=== PATIENT | female | born 1955 | race Caucasian/White ===

== ENCOUNTER 2017-04-15 07:17 | Day surgery (SDC) | payer MEDICARE, BC ==
[2017-04-15] MEDS ORDERED: LIDOCAINE 2% MDV (20MG/ML) 20ML VIAL IV ONE (07:18)
[2017-04-15] MEDS ORDERED: PROPOFOL 10 MG/ML VIAL IV ONE (07:18)
--- NOTE | 2017-04-18 09:01 | Operative Note ---
DATE OF SURGERY: 04/15/2017 SURGEON: Perez Díaz MD OPERATION: COLONOSCOPY. INDICATIONS: This is a 61-year-old female with average risk for colorectal cancer who presented for screening colonoscopy. POSTOPERATIVE DIAGNOSES: 1. A 3 mm sessile rectal polyp that was removed by cold biopsy forceps. 2. Otherwise normal colon. ANESTHESIA: Sedation is per Anesthesia. Pulse oximetry was monitored throughout the procedure to maintain O2 saturation of 90% or greater. Supplemental oxygen was administered via nasal cannula. Cardiac and vital signs were monitored throughout the duration of the procedure, and they were stable. The procedure of colonoscopy and risks and alternatives of the procedure, including the risk of bleeding and perforation, among others, were explained to the patient who voiced understanding and agreed to have the procedure done. Physical examination was performed, and the patient was found stable for sedation. PROCEDURE: The patient was placed in the left lateral position. Sedation was initiated. A digital rectal exam was performed and showed some mild external hemorrhoids with no palpable rectal masses. An Olympus PCF-180AL colonoscope was then inserted into the rectum under direct visualization. It was advanced to the cecum without difficulty. The ileocecal valve and appendiceal orifice were identified and photographed. The colonic mucosa was carefully examined upon introduction of the colonoscope. There was a 3 mm sessile polyp in the cecum that was removed by cold biopsy forceps. There were no other lesions noted. The colonoscope was then withdrawn while carefully examining the colonic mucosal surfaces. No other lesions were noted. In the rectum, retroflexion was performed and grade 1 internal hemorrhoids were noted. A 3 mm sessile polyp was noted and was removed by cold biopsy forceps. There were no other lesions noted. The colonoscope was then withdrawn and the procedure was terminated. The patient tolerated the procedure well without any immediate complications. She remained with stable vital signs and was transferred to the recovery room. RECOMMENDATIONS: 1. The patient should be on a high-fiber diet. 2. The patient is to have a repeat colonoscopy for surveillance in 3 or 5 years depending on the histology of the polyps. Thank you for allowing me to participate in the care of your patient. CC: Dr. Lisa ESPINOSA
== END 2017-04-15 09:30 | disposition home or self-care (01) ==
LOC: HOP 07:17
PROVIDERS: ATTEND Internal Medicine Gastroenterology
DX: Z12.11 Encounter for screening for malignant neoplasm of colon (principal); K62.1 Rectal polyp; D12.0 Benign neoplasm of cecum; E78.00 Pure hypercholesterolemia, unspecified; I10 Essential (primary) hypertension; M19.90 Unspecified osteoarthritis, unspecified site; G62.9 Polyneuropathy, unspecified; J45.909 Unspecified asthma, uncomplicated

== ENCOUNTER 2017-07-23 11:23 | Emergency (ER) | payer MEDICARE, BC ==
[2017-07-23] MEDS ORDERED: DOXYCYCLINE HYCLATE 100 MG CAPSULE PO ONE (11:29)
[2017-07-23] MEDS ORDERED: Diph,Pert(Acell),Tet Vac 0.5 ML SYR IM ONE (11:29)
--- NOTE | 2017-07-23 11:35 | Emergency Department Record ---
History of Present Illness - General Chief complaint: Extremity Problem Stated complaint: POSSIBLE R LEG INFECTION Time Seen by Provider: 07/23/17 11:29 Source: Patient Mode of Arrival: Ambulatory Limitations: No limitations - History of Present Illness Initial comments: 61 yo female presents with warmth and redness of the distal right leg. She is caring for her cat with a pelvic fracture. The cat rolled over onto her her on Tuesday and accidentally scratched her right lower leg. In the last day she has developed some distal redness, tenderness and warmth. No fevers. No pus. No NVD. No CP or shortness of breath. She is unsure of her last tetanus shot. Numerous drug allergies. MD Complaint: Extremity pain -: Days(s) (1) Location: Right, Lower Leg History of Same: No -: Yes Myalgia Radiation: Distal Quality: Aching Consistency: Constant Improves with: Nothing Worsens with: Palpation Associated Symptoms: Denies other symptoms - Related Data Previous Rx's Medication Instructions Recorded Doxycycline Monohydrate 100 mg PO BID #14 capsule 07/23/17 Allergies Allergy/AdvReac Type Severity Reaction Status Date / Time codeine Allergy Severe ANAPHYLAXIS Unverified 12/23/15 11:41 erythromycin lactobionate Allergy Intermediate NAUSEA Unverified 12/23/15 11:41 [From Erythrocin] morphine Allergy Intermediate RASH Unverified 12/23/15 11:41 penicillin Allergy Intermediate RASH Unverified 12/23/15 11:41 Sulfa (Sulfonamide Allergy Intermediate DERMATITS Unverified 12/23/15 11:41 Antibiotics) Review of Systems Constitutional: Denies: Chills, Fever Eyes: Denies: Eye discharge ENT: Denies: Congestion, Throat pain Respiratory: Denies: Cough Cardiovascular: Denies: Chest pain, Syncope Endocrine: Denies: Fatigue Gastrointestinal: Denies: Abdominal pain, Diarrhea, Nausea, Vomiting Genitourinary: Denies: Dysuria Musculoskeletal: Denies: Arthralgia, Back pain, Myalgia Skin: Denies: Bruising, Change in color, Rash Neurological: Denies: Headache Psychiatric: Denies: Anxiety Hematological/Lymphatic: Denies: Easy bleeding, Easy bruising Past Medical History - SOCIAL HISTORY Smoking Status: Former smoker - RESPIRATORY Hx Respiratory Disorders: Yes Hx Asthma: Yes Hx Bronchitis: Yes - CARDIOVASCULAR Hx Cardio Disorders: Yes Hx Chest Pain: Yes (angina but does not take anything) Hx Hypertension: Yes (controlled with meds) Hx Irregular Heartbeat: Yes (occ skip beat) Hx Vascular Disease: Yes Comment:: sl leak in valve - NEURO Hx Neuro Disorders: No - GI Hx GI Disorders: Yes Hx Reflux: Yes Hx Irritable Bowel: Yes (occ) Hx Ulcer: Yes Hx of Polyps: Yes - Hx Genitourinary Disorders: Yes Hx Bladder Problem: Yes Hx UTI: Yes - ENDOCRINE Hx Endocrine Disorders: Yes Hx Thyroid Disease: Yes - MUSCULOSKELETAL Hx Musculoskeletal Disorders: Yes Hx Arthritis: Yes (osteoarthritis left knee) Hx Fibromyalgia: Yes Hx Osteoporosis: Yes (mild) Comment:: arthritis in spine DDD and psoriatic arthritis - PSYCH Hx Psych Problems: No - HEMATOLOGY/ONCOLOGY Hx Hematology/Oncology Disorders: Yes Comment:: precancerous cells uterus Family Medical History Hx Heart Disease: Mother Hx Stroke: Mother Physical Exam - General General Appearance: Alert, Oriented x3, Cooperative, No acute distress Limitations: No limitations - Head Head exam: Atraumatic, Normal inspection - Eye Eye exam: Normal appearance - ENT ENT exam: Normal exam, Mucous membranes moist Ear exam: Normal external inspection Nasal Exam: Normal inspection Mouth exam: Normal external inspection - Neck Neck exam: Normal inspection - Cardiovascular Cardiovascular Exam: Regular rate, Normal rhythm, Normal heart sounds - Rectal Rectal exam: Deferred - exam: Deferred - Extremities Extremities exam: Normal capillary refill, Tenderness. negative: Normal inspection, Pedal edema Image of Full Body: 1 - erythema with mild warmth, no fluctuance or abscess. 2 - 2 abrasion/scratches - Neurological Neurological exam: Alert, Normal gait, Oriented X3 - Psychiatric Psychiatric exam: Normal affect, Normal mood - Skin Skin exam: Erythema Course - Reevaluation(s) Reevaluation #1: The patient has mild erythema at this time She has multiple antibiotic allergies. Doxycycline provided in the ED She was given instructions for a recheck in the next 48 hours if not better and sooner if worse, fever, swelling. 07/23/17 11:34 Disposition Disposition: Discharge Clinical Impression: Cellulitis Qualifiers: Site of cellulitis: extremity Site of cellulitis of extremity: lower extremity Laterality: right Qualified Code(s): L03.115 - Cellulitis of right lower limb Disposition: Home, Self-Care Condition: (1) Good Instructions: Cellulitis (ED) Additional Instructions: keep elevated return if worse, fever, swelling or concerns doxycycline twice daily Prescriptions: Doxycycline Monohydrate 100 mg PO BID #14 capsule Time of Disposition: 11:36 Quality - Quality Measures Quality Measures: N/A - Blood Pressure Screening Does Patient Have Any of the Following: No Systolic Measurement: ~ Screening for High Blood Pressure: < Pre-Hypertensive BP, F/U Documented > [ [id number]] Pre-Hypertensive Follow-up Interventions: Referral to alternative/primary care provider.
== END 2017-07-23 11:52 | disposition home or self-care (01) ==
LOC: ER 11:23
DX: L03.115 Cellulitis of right lower limb (principal); I10 Essential (primary) hypertension; Z87.891 Personal history of nicotine dependence
CPT/HCPCS: 90715; 96372; 99283